=== PATIENT | male | born 1975 | race Caucasian/White ===

== ENCOUNTER 2019-07-17 11:20 | Emergency (ER) | payer SELFPAY ==
[~2019-07-17] VITALS: Ht 177.8 cm; Wt 90.7 kg
[2019-07-17] MEDS ORDERED: ACETAMIN/BUTALBITAL/CAFFEINE TAB ONE (11:40)
[2019-07-17] MEDS ORDERED: METOCLOPRAMIDE HCL 10 MG TAB ONE (11:41)
[2019-07-17] MEDS ORDERED: METOCLOPRAMIDE HCL 10 MG TAB PO ONE (11:45)
[2019-07-17] MEDS ORDERED: ACETAMIN/BUTALBITAL/CAFFEINE TAB PO ONE (11:45)
[2019-07-17] MEDS ORDERED: NITROFURANTOIN MACROCRYSTALS 100 MG CAP ONE (12:24)
== END 2019-07-17 12:07 | disposition home or self-care (01) ==
LOC: ER 11:25
DX: G44.211 Episodic tension-type headache, intractable (principal)
CPT/HCPCS: 99284; J8597

== ENCOUNTER 2019-08-31 21:20 | Emergency (ER) | payer SELFPAY ==
[~2019-08-31] VITALS: Ht 177.8 cm; Wt 90.7 kg
--- OUTSIDE RECORDS SUMMARY | 2019-08-31 21:24 | XMS REPORT ---
Author Author [facility] Organization [facility] Address 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 Allergies, Adverse Reactions, Alerts This patient has no known allergies or adverse reactions. Medications This patient has no known medications. Procedures This patient has no known procedures. Encounters Start Date/Time End Date/Time Encounter Type Admission Type [facility] Care Department Encounter ID Source 2019-07-17 11:25:00 2019-07-17 12:07:00 Departed Emergency Room [facility] [id number] [facility] Results This patient has no known results.
[2019-08-31] MEDS ORDERED: KETOROLAC TROMETHAMINE 30 MG/ML VIAL IV ONE (21:28)
[2019-08-31 22:00] LABS: BASOPHILS # (AUTO) 0.1 (0.0-0.1); BASOPHILS % 1.1 % (0.0-1.0); EOSINOPHILS # (AUTO) 0.3 (0.0-0.4); EOSINOPHILS % 5.6 % (0.0-6.0); HEMATOCRIT 40.9 % (38.2-49.6); HEMOGLOBIN 13.9 g/dL (14.0-18.0); LYMPHOCYTES # (AUTO) 1.9 (1.0-3.2); LYMPHOCYTES % 39.8 % (18.0-39.1); MEAN CORPUSCULAR HEMOGLOBIN 32.9 pg (28-32); MEAN CORPUSCULAR VOLUME 96.9 fL (81-99); MONOCYTES # (AUTO) 0.5 (0.2-0.8); MONOCYTES % 10.5 % (4.4-11.3); NEUTROPHILS % 42.6 % (38.7-80.0); PLATELET COUNT 158 x10e3/uL (140-360); RED BLOOD COUNT 4.22 x10e6/uL (4.3-5.7); RED CELL DISTRIBUTION WIDTH 14.2 % (11.7-14.4)
[2019-08-31 22:19] LABS: ALANINE AMINOTRANSFERASE 62 IU/L (0-55); ALBUMIN 4.2 g/dL (3.5-5.0); ALBUMIN/GLOBULIN RATIO 1.1 (0.8-2.0); ALKALINE PHOSPHATASE 88 IU/L (40-150); ANION GAP 16.2 mmol/L (8-16); BLOOD UREA NITROGEN 12 mg/dL (7-26); BUN/CREATININE RATIO 10 (6-25); CALCIUM 9.7 mg/dL (8.4-10.2); CARBON DIOXIDE 24 mmol/L (22-29); CHLORIDE 103 mmol/L (98-107); EST GLOMERULAR FILTRATION RATE > 60 ML/MIN (60-); GLUCOSE 105 mg/dL (74-118); POTASSIUM 4.2 mmol/L (3.5-5.1); SODIUM 139 mmol/L (136-145)
--- NOTE | 2019-08-31 22:25 | Diagnostic Imaging Report ---
Exam: Head CT without contrast History: Trauma Comparison studies: None Technique: Axial images were obtained from the skull base to the vertex. Coronal and sagittal images reconstructed from the axial data. Dose modulation, iterative reconstruction, and/or weight based adjustment of the mA/kV was utilized to reduce the radiation dose to as low as reasonably achievable. Radiation dose: Total DLP: 1036 mGy*cm. Estimated effective dose: DLP x 0.015 Intravenous contrast: None Findings: Scalp and bone marrow: Surgical changes of prior left frontal craniotomy. Brain sulci: Appropriate for age. Ventricles: Normal in size and configuration. No hydrocephalus. Extra-axial spaces: No masses, no fluid collection. Parenchyma: Focal encephalomalacia and gliosis in the left frontal lobe centered along the left superior frontal gyrus beneath the left frontal craniotomy. No mass, acute hemorrhage or acute cortical insults. Sellar/suprasellar region: No abnormalities. Craniocervical junction: Patent foramen magnum. No Chiari one malformation. Incidental findings: Mild mucosal thickening in the bilateral maxillary sinuses, left anteromedial frontal sinus and at the bilateral frontoethmoidal recesses. IMPRESSION: 1. No acute abnormalities. 2. 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 Signed by: Dr. Segundo Vega M.D. on 08/31/2019 10:22 PM
--- NOTE | 2019-08-31 22:38 | Diagnostic Imaging Report ---
History: Trauma Comparison studies: None Technique: Axial images were obtained through the cervical region. Coronal and sagittal images reconstructed from the axial data. Dose modulation, iterative reconstruction, and/or weight based adjustment of the mA/kV was utilized to reduce the radiation dose to as low as reasonably achievable. Intravenous contrast: None Findings: Atlantoaxial articulation: Intact. Alignment: Mild reversal of the usual cervical lordosis centered at C5-C6. No subluxations. Cervicomedullary junction: No abnormalities. The foramen magnum is patent. Soft tissues: No gross acute abnormalities. Vertebrae: No acute fractures, infection or neoplasm. Chronic, nondisplaced fracture or congenital incomplete osseous union of the C6 spinous process. Degenerative changes: Mildly degenerated C5-C6 disc with disc osteophyte complex which result in mild canal stenosis. Moderate right and mild left foraminal stenosis at C5-C6 due to uncovertebral arthrosis. 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 IMPRESSION: 1. No acute cervical spine fracture or subluxation. 2. Degenerative changes at C5-C6. 3. Ligament, spinal cord and or vascular abnormalities cannot be excluded on the basis of this examination Signed by: Dr. Segundo Vega M.D. on 08/31/2019 10:35 PM
[2019-08-31 23:24] LABS: AMPHETAMINES SCREEN,URINE NEGATIVE (NEGATIVE); PHENCYCLIDINE SCREEN,URINE NEGATIVE (NEGATIVE)
[2019-08-31 23:25] LABS: BENZODIAZEPINES SCREEN,URINE NEGATIVE (NEGATIVE)
--- NOTE | 2019-09-01 00:31 | Diagnostic Imaging Report ---
EXAM: CT Chest, Abdomen and Pelvis WITH contrast INDICATION: Fall COMPARISON: None. TECHNIQUE: Chest, abdomen and pelvis were scanned utilizing a multidetector helical scanner from the lung apex to the pubic symphysis after administration of IV contrast. Coronal and sagittal reformations were obtained. Routine protocol was performed. Scan was performed when during portal venous phase. IV CONTRAST: 100 mL of Isovue 370 ORAL CONTRAST: None COMPLICATIONS: None RADIATION DOSE: Total DLP: 2425 mGy*cm Estimated effective dose: (DLP x 0.015 x size factor) mSv CTDIvol has been reviewed. It is below the limits set by the Radiation Protocol Committee (RPC). Dose modulation, iterative reconstruction, and/or weight based adjustment of the mA/kV was utilized to reduce the radiation dose to as low as reasonably achievable. FINDINGS: LINES and TUBES: None. LUNGS AND AIRWAYS: Benign calcific granuloma in the right lung otherwise lungs are clear. Airways are normal. PLEURA: The pleural spaces are clear. HEART AND MEDIASTINUM: The thyroid gland is normal. No mediastinal, hilar or axillary lymphadenopathy. The heart is normal in size. There is no pericardial effusion. Coronary artery calcifications. HEPATOBILIARY: No focal hepatic lesions. No biliary ductal dilation. GALLBLADDER: No radio-opaque stones or sludge. No wall thickening. SPLEEN: No splenomegaly. PANCREAS: No focal masses or ductal dilatation. ADRENALS: No adrenal nodules KIDNEYS/URETERS: Kidneys enhance symmetrically. No hydronephrosis. No cystic or solid mass lesions. No stones. GI TRACT: No abnormal distention, wall thickening, or evidence of bowel obstruction. Appendix is normal. PELVIC ORGANS/BLADDER: Unremarkable. LYMPH NODES: No lymphadenopathy. VESSELS: Unremarkable. PERITONEUM / RETROPERITONEUM: No free air or fluid. BONES: Degenerative changes in the spine. Subtle T11 superior endplate compression fracture. SOFT TISSUES: Unremarkable. IMPRESSION: 1. Subtle T11 superior endplate compression fracture. 2. Coronary artery calcific atherosclerosis. Signed by: Joseph Larose DO on 09/01/2019 12:28 AM
--- NOTE | 2019-09-01 00:34 | Diagnostic Imaging Report ---
EXAM: CT of the right hip without contrast INDICATION: Fall, pain COMPARISON: None available. TECHNIQUE: Multidetector CT scanning of the right hip was performed. Coronal and sagittal multiplanar reformations were obtained. RADIATION DOSE: Total DLP: 2425 mGy*cm Estimated effective dose: (DLP x 0.014 x size factor) mSv CTDIvol has been reviewed. It is below the limits set by the Radiation Protocol Committee (RPC). Dose modulation, iterative reconstruction, and/or weight based adjustment of the mA/kV was utilized to reduce the radiation dose to as low as reasonably achievable. FINDINGS: Bones: No fractures. Right os acetabula. Joints: No dislocation. Mild osteophytes and subchondral sclerosis in the right femoral acetabular joint. Mild degenerative changes. Soft Tissues: No gross soft tissue abnormality. IMPRESSION: No acute CT abnormality in the right hip. Mild degenerative changes in the right hip. Signed by: Joseph Larose DO on 09/01/2019 12:31 AM
--- NOTE | 2019-09-01 00:35 | Diagnostic Imaging Report ---
X-ray left hand 3 views HISTORY: Fall, pain. COMPARISON: None available. FINDINGS: Bones: No acute displaced fracture. Osseous alignment is within normal limits. Joints: The joint spaces are well-maintained. Soft tissues: The soft tissues appear unremarkable. IMPRESSION: No acute radiographic abnormality. Signed by: Joseph Larose DO on 09/01/2019 12:32 AM
--- NOTE | 2019-09-01 00:37 | Diagnostic Imaging Report ---
X-ray left knee 3 views X-ray right knee 3 views HISTORY: Pain. COMPARISON: None available. FINDINGS: No displaced fracture. The osseous alignment is within normal limits. The joint spaces are well-maintained. Mild soft tissue swelling about the knees. IMPRESSION: No acute radiographic osseous abnormality. Mild soft tissue swelling about the knees. Signed by: Joseph Larose DO on 09/01/2019 12:33 AM
[2019-09-01] MEDS ORDERED: SODIUM CHLORIDE 0.9% 50ML 50 ML ONE (00:41)
[2019-09-01] MEDS ORDERED: IOPAMIDOL 370 MG/ML 200 ML INFUS..BTL INJ ONE (00:42)
[2019-09-01 01:06] VITALS: BP 158/90
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
== END 2019-09-01 01:20 | disposition home or self-care (01) ==
LOC: ER 21:20
DX: S00.83XA Contusion of other part of head, initial encounter (principal); S80.02XA Contusion of left knee, initial encounter; S80.01XA Contusion of right knee, initial encounter; M25.551 Pain in right hip; W01.0XXA Fall on same level from slipping, tripping and stumbling without subsequent striking against object, initial encounter; F10.920 Alcohol use, unspecified with intoxication, uncomplicated; I10 Essential (primary) hypertension
CPT/HCPCS: 36415; 70450; 71260; 72125; 73130; 73562; 73701; 74177; 80053; 80307; 80320; 85025; 96374; 99284; J1885; Q9967